=== PATIENT | female | born 1955 | race Caucasian/White ===

== ENCOUNTER 2016-09-13 19:16 | Emergency (ER) | payer BC ==
[~2016-09-13] VITALS: Ht 162.6 cm; Wt 67.8 kg
[~2016-09-13 19:16] MED LIST: BENZ100 PO; COZA100T PO; IBUP800T23 PO; INHALER INH; LEVO.15 PO; MMW SWISH-SPIT; PRED20 PO
[2016-09-13 19:30] VITALS: BP 148/92; PULSE 81; RESP 16; TEMP 97.8; O2SAT 96
[2016-09-13] MEDS ORDERED: LOSA100T PO (19:47)
[2016-09-13] MEDS ORDERED: LEVO.125 PO (19:47)
--- NOTE | 2016-09-13 19:55 | PD ---
HPI Chief Complaint: Eye Problems/Injury Time Seen by Provider: 19:55 Travel History International Travel<30 days: No Contact w/Intl Traveler<30days: No Traveled to known affect area: No History of Present Illness HPI Patient is a 61-year-old female presenting with left eye pain. Present for approximately one week. Worsening of the last 3 days. She endorses foreign body sensation, pain, itching, burning, redness clear discharge. She denies photophobia or visual disturbance. She states that she wears glasses but not contacts. Her was diagnosed with conjunctivitis and she has been using his polymyxin drops without relief. She denies any right eye symptoms. She denies any trauma or injury to the eye. She denies any ENT/URI symptoms. She denies history of HSV shingles and denies any active rashes. PFSH Past Medical History Asthma: No Blood Disorders: No Anxiety: No Depression: No Heart Rhythm Problems: No Cancer: No Cardiovascular Problems: Yes (HTN) High Cholesterol: No Chemotherapy: No Chest Pain: No Congestive Heart Failure: No COPD: No Diabetes: No Diminished Hearing: No Endocrine: Yes Genitourinary: No Hypertension: Yes Musculoskeletal: No Neurologic: No Psychiatric: No Reproductive: No Respiratory: No Immunizations Current: Yes Migraines: Yes Myocardial Infarction: No Radiation Therapy: No Sleep Apnea: No Thyroid Disease: Yes (Hypo) Tetanus Vaccination: > 5 Years Influenza Vaccination: No ?: Not Menopausal: Yes Past Surgical History Cholecystectomy: Yes Hysterectomy: Yes (2002) Other Surgery: Yes (HYSTERECTOMY, CHOLECYSTECTOMY) Social History Alcohol Use: Yes (~2X WEEKLY) Tobacco Use: No Substance Use: No Allergies-Medications (Allergen,Severity, Reaction): Coded Allergies: Penicillin (Verified Allergy, Severe, 09/13/16) Reported Meds & Prescriptions Reported Meds & Active Scripts Active Ocuflox Opth Drops (Ofloxacin Opth Drops) 0.3 % Drops 1 Drop LEFT EYE Q4HR One drop in the affected eye every 15 minutes for 4 hours, then hourly for the next 44 hours, then every 4 hours for the next 12 days. Reported Synthroid (Levothyroxine Sodium) 125 Mcg Tab 125 Mcg PO DAILY Losartan (Losartan Potassium) 100 Mg Tab 100 Mg PO DAILY Review of Systems General / Constitutional: No: Fever, Chills Eyes: Positive: Other (see the history of present illness) HENT: No: Headaches, Lightheadedness, Sore Throat, Rhinitis, Nosebleed, Neck Stiffness, Neck Pain, Earache Skin: No Rash Physical Exam Narrative GENERAL: Well-developed and well-nourished adult female in no acute distress. SKIN: Warm and dry. Good turgor without tenting. No rashes visible, no facial lesions or Herring sign present. HEAD: Normocephalic and atraumatic. EYES: PERRL bilaterally, 5mm. EOMI bilaterally. Moderate left eye conjunctival injection without limbal injection. Mild chemosis of the inferior conjunctivae without icterus present. No proptosis. Lids without edema or erythema. Lid eversion reveals no foreign body. Visual scott normal to confrontation. Fluorescein stain shows uptake in the inferior part of the cornea below the level of the pupil diffusely. Negative Sylvia sign. No hyphema or hypopyon. Slit-lamp exam reveals punctate lesions the inferior aspect of the cornea without evidence of ulceration or WBC infiltrate. No flare or cells floating. ENT: Bilateral ear canals are non-edematous/non-erythematous without otorrhea. Bilateral TMs have intact landmarks and without distortion, perforation, air- fluid level or erythema. Nasal mucosa pink and moist without discharge, septum intact and midline. Buccal mucosa pink and moist. Oropharynx free of erythema, tonsillar hypertrophy, masses, swelling, asymmetry and exudates. Uvula midline and airway patent. NECK: Supple, no midline tenderness, crepitus or step-offs. Trachea midline, no JVD. No cervical or facial lymphadenopathy. CARDIOVASCULAR: Regular rate and rhythm without murmurs, rubs, clicks or gallops. RESPIRATORY: Clear to auscultation bilaterally with symmetrical rise and fall, no distress or use of accessory muscles. NEUROLOGIC: CN II-XII grossly intact. Awake and alert. Motor grossly within normal limits. Normal speech. PSYCHIATRIC: Appropriate mood and affect; insight and judgment normal. Data Data Last Documented VS Vital Signs Date Time Temp Pulse Resp B/P Pulse Ox O2 Delivery O2 Flow Rate FiO2 09/13/16 19:30 97.8 81 16 148/92 96 Orders Proparacaine 0.5% Opth Soln (Alcaine 0.5 (09/13/16 20:00) MDM Medical Decision Making Medical Screen Exam Complete: Yes Emergency Medical Condition: Yes Differential Diagnosis Keratitis versus corneal ulceration versus corneal abrasion Narrative Course Patient is a 61-year-old female with history and physical suggestive of corneal abrasion and punctate keratitis. There is no evidence of globe rupture. Visual acuity is intact. She's been using polymyxin drops with little relief. I also had but he agrees with the assessment, recommend switching antibiotics and outpatient follow-up with [employer] [facility] tomorrow morning. We do not have an [employer] clerk wilton weaver and he agrees that her condition will likely not worsen until tomorrow morning when she can see an [employer] [facility]. Patient was told to DC polymyxin and prescribed Ocuflox instead.tetanus vaccine updated today. See discharge paperwork for further instructions. The plan was discussed with the patient who acknowledged their understanding and agreement. Reinforced the follow-up with primary care is critically important. Patient instructed on emergent conditions that should prompt return to ED. Diagnosis Primary Impression: Corneal abrasion Qualified Code: S05.02XA - Corneal abrasion, left, initial encounter Referrals: Dimitry Harlye MD, Nishita MD Patient Instructions: Corneal Abrasion (ED), General Instructions Additional Instructions: Discontinue polymyxin and begin taking the Ocuflox this evening Do not skip any doses. Follow-up with [employer] [facility] tomorrow morning, recommended Dr. Kennedy or Cricket Return to the ED for any acute worsening of symptoms Med/Other Pt SpecificInfo: Prescription(s) given Scripts Ofloxacin Opth Drops (Ocuflox Opth Drops)0.3 % Drops1 Drop LEFT EYE Q4HR #1 BOTTLE One drop in the affected eye every 15 minutes for 4 hours, then hourly for the next 44 hours, then every 4 hours for the next 12 days. Prov:Jasson Downing MD 09/13/16 Disposition: 01 DISCHARGE HOME Condition: Stable Jeff Wallis III Sep 13, 2016 19:55
[2016-09-13] MEDS ORDERED: PROPARACAINE HCL 0.5% OPHT SOLN 15 ML BTL RIGHT EYE ONE (20:00)
[2016-09-13] MEDS ORDERED: OCUF0.3D LEFT EYE (20:49)
[2016-09-13] MEDS ORDERED: TETANUS/DIPHTHERIA TOXOID ADULT 0.5 ML VIAL IM ONE (21:00)
== END 2016-09-13 21:08 | disposition home or self-care (01) ==
LOC: PHEFT 19:16
DX: S05.02XA Injury of conjunctiva and corneal abrasion without foreign body, left eye, initial encounter (principal); I10 Essential (primary) hypertension; E07.9 Disorder of thyroid, unspecified; Z23 Encounter for immunization; Z86.79 Personal history of other diseases of the circulatory system; X58.XXXA Exposure to other specified factors, initial encounter
CPT/HCPCS: 90471; 90714